=== PATIENT | male | born 1975 | race Hispanic/Latino ===

== ENCOUNTER 2018-03-15 21:00 | Emergency (ER) | payer MEDICARE ==
[2018-03-15 21:49] LABS: BASOPHILS % (AUTO) 1.1 % (0.0-5.0); EOSINOPHILS % (AUTO) 4.7 % (0.0-8.0); HEMATOCRIT 44.7 % (42-54); LYMPHOCYTES % (AUTO) 21.1 % (21.0-51.0); MEAN CORPUSCULAR HEMOGLOBIN 26.8 pg (27.0-33.0); MEAN CORPUSCULAR HGB CONC 32.6 g/dL (32.0-36.0); MONOCYTES % (AUTO) 6.8 % (3.0-13.0); NEUTROPHILS % (AUTO) 66.3 % (40.0-77.0); NUCLEATED RED BLOOD CELLS 0.1 % (0.0-0.19); PLATELET COUNT (AUTO) 198 K/uL (130-400); RED BLOOD CELL COUNT(AUTO) 5.45 MIL/uL (4.50-6.20); RED CELL DISTRIBUTION WIDTH 13.7 % (11.0-15.5); WHITE BLOOD COUNT (AUTO) 6.7 K/uL (4.8-10.8)
[2018-03-15 21:56] LABS: APPEARANCE,URINE Clear (CLEAR); BILIRUBIN,URINE Negative (NEGATIVE); COLOR,URINE Yellow (YELLOW); GLUCOSE, URINE (UA) >=1000 mg/dL (NEGATIVE); KETONES,URINE Negative (NEGATIVE); LEUKOCYTE ESTERASE ,URINE Negative (NEGATIVE); NITRATE,URINE Negative (NEGATIVE); OCCULT BLOOD,URINE Negative (NEGATIVE); PH,URINE 5.5 (5.0-8.0); PROTEIN,URINE Trace (NEGATIVE); UROBILINOGEN,URINE 0.2 mg/dL (0.2-1.0)
[2018-03-15 22:03] LABS: BACTERIA,URINE Rare /HPF (None Seen); RBC,URINE None Seen /HPF (0-1); SQUAMOUS EPITHELIAL CELL,UR None Seen /HPF (0-2); WBC,URINE 0-1 /HPF (0-1)
[2018-03-15 22:03] LABS: ALBUMIN 3.7 g/dL (3.5-5.0); BILIRUBIN,TOTAL 0.4 mg/dL (0.2-1.0); CREATININE 1.7 mg/dL (0.5-1.5); POTASSIUM 3.9 mmol/L (3.5-5.1); TOTAL PROTEIN, SERUM 7.3 g/dL (6.0-8.3)
[2018-03-15] MEDS ORDERED: SODIUM CHLORIDE 0.9% 1000ML 1,000 ML IV ONE (22:18)
[2018-03-15] MEDS ORDERED: INSULIN HUMULIN R 100 UNIT/ML 3ML ONE (23:09)
[2018-03-16] MEDS ORDERED: INSULIN HUMULIN R 100 UNIT/ML 3ML ONE (01:36)
== END 2018-03-16 01:49 | disposition home or self-care (01) ==
LOC: EDH 21:00
DX: E11.65 Type 2 diabetes mellitus with hyperglycemia (principal); I10 Essential (primary) hypertension
CPT/HCPCS: 36415; 80053; 81001; 82009; 82948 ×3; 85025; 96361; 96374; 96376; 99285; J1815 ×2; J7030

== ENCOUNTER 2018-07-28 00:46 | Emergency (ER) | payer MEDICARE ==
[2018-07-28 02:05] LABS: RAPID GROUP A STREP NEGATIVE (NEGATIVE)
== END 2018-07-28 02:59 | disposition home or self-care (01) ==
LOC: EDH 00:46
DX: J06.9 Acute upper respiratory infection, unspecified (principal); R53.81 Other malaise; E11.9 Type 2 diabetes mellitus without complications; I10 Essential (primary) hypertension; E78.5 Hyperlipidemia, unspecified; Z98.890 Other specified postprocedural states
CPT/HCPCS: 87804; 87880

== ENCOUNTER 2018-09-11 14:35 | Emergency (ER) | payer MEDICARE ==
[2018-09-11 15:56] LABS: CREATININE 1.3 mg/dL (0.5-1.5); POTASSIUM 3.9 mmol/L (3.5-5.1)
== END 2018-09-11 16:34 | disposition home or self-care (01) ==
LOC: EDH 14:35
DX: R42 Dizziness and giddiness (principal); E11.65 Type 2 diabetes mellitus with hyperglycemia; E78.5 Hyperlipidemia, unspecified; I10 Essential (primary) hypertension
CPT/HCPCS: 36415; 80048; 82948; 84484; 93005

== ENCOUNTER → 2020-09-02 | Outpatient (CLI) | payer MEDICARE | END | disposition home or self-care (01) | LOC: EDH 11:20 | PROVIDERS: ATTEND Internal Medicine | DX: M47.816 Spondylosis without myelopathy or radiculopathy, lumbar region (principal); M48.061 Spinal stenosis, lumbar region without neurogenic claudication; R52 Pain, unspecified; M25.78 Osteophyte, vertebrae; M40.56 Lordosis, unspecified, lumbar region | CPT/HCPCS: 72100 ==

== ENCOUNTER → 2020-11-17 | Outpatient (CLI) | payer OTHER ==
[2020-11-17 14:03] LABS: BASOPHILS % (AUTO) 0.4 % (0.0-5.0); EOSINOPHILS % (AUTO) 0.1 % (0.0-8.0); HEMATOCRIT 45.4 % (42-54); LYMPHOCYTES % (AUTO) 23.3 % (21.0-51.0); MEAN CORPUSCULAR HEMOGLOBIN 26.1 pg (27.0-33.0); MEAN CORPUSCULAR HGB CONC 31.9 g/dL (32.0-36.0); MEAN CORPUSCULAR VOLUME 81.7 fL (79-99); MONOCYTES % (AUTO) 6.5 % (3.0-13.0); NEUTROPHILS % (AUTO) 68.5 % (40.0-77.0); PLATELET COUNT (AUTO) 345 K/uL (130-400); RED BLOOD CELL COUNT(AUTO) 5.56 MIL/uL (4.50-6.20); RED CELL DISTRIBUTION WIDTH 13.2 % (11.0-15.5); WHITE BLOOD COUNT (AUTO) 10.2 K/uL (4.8-10.8)
[2020-11-17 14:16] LABS: HEMOGLOBIN A1C 5.7 % (4.0-6.0)
[2020-11-17 14:22] LABS: CREATININE 1.1 mg/dL (0.5-1.5); POTASSIUM 3.7 mmol/L (3.5-5.1)
[2020-11-17 14:25] LABS: INR 1.02 (0.85-1.15); PROTHROMBIN TIME 11.1 SEC (9.6-11.6)
== END | disposition home or self-care (01) ==
LOC: RAH 12:38
PROVIDERS: ATTEND Internal Medicine
DX: Z01.812 Encounter for preprocedural laboratory examination (principal); M47.814 Spondylosis without myelopathy or radiculopathy, thoracic region; E11.9 Type 2 diabetes mellitus without complications; M51.26 Other intervertebral disc displacement, lumbar region
CPT/HCPCS: 36415; 71046; 80048; 83036; 85025; 85610

== ENCOUNTER → 2020-12-20 | Outpatient (CLI) | payer OTHER | END | disposition home or self-care (01) | LOC: OIH 13:15 | PROVIDERS: ATTEND Physical Medicine & Rehabilitation | DX: M19.071 Primary osteoarthritis, right ankle and foot (principal); M25.571 Pain in right ankle and joints of right foot | CPT/HCPCS: 73610 ==

== ENCOUNTER → 2022-09-19 | Outpatient (CLI) | payer OTHER | END | disposition home or self-care (01) | LOC: RAH 12:34 | PROVIDERS: ATTEND Nurse Practitioner Family | DX: M17.12 Unilateral primary osteoarthritis, left knee (principal); M25.562 Pain in left knee; W19.XXXA Unspecified fall, initial encounter; M79.89 Other specified soft tissue disorders; Y93.89 Activity, other specified; Y92.89 Other specified places as the place of occurrence of the external cause; Y99.8 Other external cause status | CPT/HCPCS: 73562 ==

== ENCOUNTER → 2022-11-09 | Outpatient (CLI) | payer OTHER ==
[~2022-11-09] VITALS: Ht 5.1 cm; Wt 185.2 kg
== END | disposition home or self-care (01) ==
LOC: DTH 09:01
PROVIDERS: ATTEND Pediatrics
DX: Z71.3 Dietary counseling and surveillance (principal); E66.01 Morbid (severe) obesity due to excess calories; E11.9 Type 2 diabetes mellitus without complications; I10 Essential (primary) hypertension; E78.00 Pure hypercholesterolemia, unspecified; M19.91 Primary osteoarthritis, unspecified site; K76.0 Fatty (change of) liver, not elsewhere classified; K21.9 Gastro-esophageal reflux disease without esophagitis; G47.33 Obstructive sleep apnea (adult) (pediatric); Z68.43 Body mass index [BMI] 50.0-59.9, adult
CPT/HCPCS: 97802

== ENCOUNTER → 2022-12-05 | Outpatient (CLI) | payer OTHER | END | disposition home or self-care (01) | LOC: DTH 08:59 | PROVIDERS: ATTEND Surgery | DX: Z71.3 Dietary counseling and surveillance (principal); E66.01 Morbid (severe) obesity due to excess calories; E11.9 Type 2 diabetes mellitus without complications; I10 Essential (primary) hypertension; E78.00 Pure hypercholesterolemia, unspecified; K76.0 Fatty (change of) liver, not elsewhere classified; G47.33 Obstructive sleep apnea (adult) (pediatric); M19.91 Primary osteoarthritis, unspecified site; K21.9 Gastro-esophageal reflux disease without esophagitis; Z68.43 Body mass index [BMI] 50.0-59.9, adult | CPT/HCPCS: 97803 ==

== ENCOUNTER → 2023-01-25 | Outpatient (CLI) | payer OTHER | END | disposition home or self-care (01) | LOC: DTH 09:24 | PROVIDERS: ATTEND Surgery | DX: Z71.3 Dietary counseling and surveillance (principal); E66.01 Morbid (severe) obesity due to excess calories; E11.9 Type 2 diabetes mellitus without complications; I10 Essential (primary) hypertension; M19.91 Primary osteoarthritis, unspecified site; E78.00 Pure hypercholesterolemia, unspecified; K76.0 Fatty (change of) liver, not elsewhere classified; K21.9 Gastro-esophageal reflux disease without esophagitis; G47.33 Obstructive sleep apnea (adult) (pediatric); Z68.43 Body mass index [BMI] 50.0-59.9, adult | CPT/HCPCS: 97803 ==